=== PATIENT | female | born 1955 | race Caucasian/White ===

== ENCOUNTER → 2017-04-12 | Outpatient (CLI) | payer BC ==
[~2017-04-12] MED LIST: ASPI81CH43 GT; ATEN50TA OR; LISI10TA6 OR; TRAM-297 OR; TRIATAB3 OR
[2017-04-12 07:36] LABS: Basophils # (auto) 0.1 uL; Eosinophils # (auto) 0.1 uL; Monocytes # (auto) 0.5 uL; Neutrophils # (auto) 5.9 uL
[2017-04-12 07:38] LABS: Basophils % (auto) 0.7 % (0.0-2.0); Eosinophils % (auto) 1.6 % (0.0-7.0); Hematocrit 42.3 % (36.0-46.0); Hemoglobin 14.6 g/dL (12.2-16.2); Lymphocytes # (auto) 1.1 uL; Lymphocytes % (auto) 14.1 % (10.0-50.0); Mean Corpuscular Hemoglobin 34.8 pg (28.0-32.0); Mean Corpuscular Hgb Conc. 34.5 g/dL (32.0-36.0); Mean Corpuscular Volume 100.7 fL (80.0-100.0); Neutrophils % (auto) 76.6 % (37.0-80.0); Nucleated Red Blood Cells % 0.1 %; Platelet Count (auto) 188 10^3/uL (140-450); Red Cell Distribution Width 12.5 % (11.8-14.3); White Blood Cell 7.7 10^3/uL (4.4-10.8)
[2017-04-12 08:27] LABS: BUN/Creatinine Ratio 10.7; Bilirubin, Total 0.6 mg/dL (0.2-1.0); Potassium 4.3 mmol/L (3.5-5.1)
[2017-04-12 08:29] LABS: Urine Bacteria NONE SEEN /hpf (None Seen); Urine Blood Negative /uL (Negative); Urine Specific Gravity 1.005 (1.001-1.035); Urine WBC <1 /hpf (0 - 5)
[2017-04-12 09:43] LABS: Folate (Folic Acid) > 24.00 ng/mL (5.38-24)
== END | disposition home or self-care (01) ==
LOC: LAB 07:03
PROVIDERS: ATTEND Family Medicine
DX: I10 Essential (primary) hypertension (principal)
CPT/HCPCS: 36415; 80053; 80061; 81001; 82607; 82746; 83036; 85025

== ENCOUNTER 2017-11-29 08:15 | Inpatient (IN) | payer BC ==
[~2017-11-29] VITALS: Ht 172.7 cm; Wt 90.2 kg
[2017-11-29 09:40] VITALS: BP 139/86
[2017-11-29] MEDS ORDERED: NITROGLYCERIN 0.4 MG SL TAB SL PRN (11:30)
[2017-11-29] MEDS ORDERED: SODIUM CHLORIDE 0.9% 1,000 ML IV SCH (11:30)
[2017-11-29] MEDS ORDERED: MORPHINE SULF INJ 2 MG/ML SYRINGE 1ML IV PRN (11:30)
[2017-11-29] MEDS: SODIUM CHLORIDE 0.9% 1,000 ML IV SCH (11:53)
[2017-11-29 12:22] LABS: Eosinophils # (auto) 0.2 uL; Mean Corpuscular Hgb Conc. 34.8 g/dL (32.0-36.0); Neutrophils # (auto) 4.4 uL; Nucleated Red Blood Cells % 0.1 %; White Blood Cell 6.5 10^3/uL (4.4-10.8)
[2017-11-29 12:23] LABS: Basophils # (auto) 0.1 uL; Basophils % (auto) 1.7 % (0.0-2.0); Eosinophils % (auto) 2.9 % (0.0-7.0); Hemoglobin 13.9 g/dL (12.2-16.2); Lymphocytes # (auto) 1.3 uL; Lymphocytes % (auto) 19.8 % (10.0-50.0); Mean Corpuscular Hemoglobin 34.2 pg (28.0-32.0); Mean Corpuscular Volume 98.4 fL (80.0-100.0); Monocytes # (auto) 0.4 uL; Monocytes % (auto) 6.9 % (0.0-12.0); Neutrophils % (auto) 68.7 % (37.0-80.0); Platelet Count (auto) 213 10^3/uL (140-450); Red Blood Cells 4.06 10^6/uL (4.0-5.20)
[2017-11-29] MEDS ORDERED: SIMV10TA84 PO (12:25)
[2017-11-29] MEDS ORDERED: ATEN50TA PO (12:25)
[2017-11-29] MEDS ORDERED: MULT-242 OR (12:25)
[2017-11-29] MEDS ORDERED: CALC-386 OR (12:25)
[2017-11-29] MEDS ORDERED: ASCO500T11 PO (12:25)
[2017-11-29] MEDS ORDERED: OMEG100078 PO (12:25)
[2017-11-29] MEDS ORDERED: ATEN-60 PO (12:25)
[2017-11-29] MEDS ORDERED: HYDR25TA4 PO (12:25)
[2017-11-29] MEDS ORDERED: CHOL20007 PO (12:25)
[2017-11-29] MEDS ORDERED: LOSA25TA40 PO (12:25)
[2017-11-29 12:39] LABS: INR 1.01 (0.9-1.15); Partial Thromboplastin Time 30.2 sec (23.78-33.04); Prothrombin Time 10.8 sec (9.27-12.13)
[2017-11-29 12:55] LABS: Bilirubin, Total 0.7 mg/dL (0.2-1.0); Calcium 9.7 mg/dL (8.5-10.1); Potassium 3.8 mmol/L (3.5-5.1); Total Protein 7.8 g/dL (6.4-8.2)
[2017-11-29 13:00] VITALS: BP 132/62
[2017-11-29 13:15] LABS: Urine Bacteria FEW /hpf (None Seen); Urine Blood Negative /uL (Negative); Urine Mucus FEW (None Seen); Urine Specific Gravity 1.003 (1.001-1.035); Urine WBC 2 /hpf (0 - 5)
[2017-11-29] MEDS ORDERED: IOHEXOL 300 MG/ML 100ML BOTTLE IJ ONE (13:37)
[2017-11-29] MEDS ORDERED: GOLYTELY 4L KIT PO ONE (15:00)
[2017-11-29 16:17] VITALS: BP 138/72
[2017-11-29 22:00] VITALS: BP 131/72
[2017-11-29] MEDS ORDERED: ACETAMINOPHEN 500 MG TAB PO ONE (22:58)
[2017-11-30] MEDS: SODIUM CHLORIDE 0.9% 1,000 ML IV SCH ×3 (01:55→15:52)
[2017-11-30 05:00] VITALS: BP 137/73
[2017-11-30] MEDS ORDERED: GOLYTELY 4L KIT PO ONE (06:00)
[2017-11-30 06:15] LABS: Eosinophils # (auto) 0.2 uL; Hematocrit 39.8 % (36.0-46.0); Lymphocytes # (auto) 1.4 uL; Monocytes # (auto) 0.5 uL; Neutrophils # (auto) 3.9 uL
[2017-11-30 06:20] LABS: Basophils # (auto) 0.1 uL; Basophils % (auto) 0.9 % (0.0-2.0); Eosinophils % (auto) 3.1 % (0.0-7.0); Mean Corpuscular Hgb Conc. 35.2 g/dL (32.0-36.0); Mean Corpuscular Volume 98.4 fL (80.0-100.0); Monocytes % (auto) 7.6 % (0.0-12.0); Neutrophils % (auto) 64.4 % (37.0-80.0); Red Blood Cells 4.05 10^6/uL (4.0-5.20); Red Cell Distribution Width 12.1 % (11.8-14.3)
[2017-11-30 06:23] LABS: Mean Corpuscular Hemoglobin 34.5 pg (28.0-32.0); Platelet Count (auto) 209 10^3/uL (140-450)
[2017-11-30 06:32] LABS: BUN/Creatinine Ratio 10.7; Potassium 3.7 mmol/L (3.5-5.1)
[2017-11-30 08:43] VITALS: BP 148/72
[2017-11-30] MEDS ORDERED: SODIUM CHLORIDE LOCK 10 ML ONE (08:55)
[2017-11-30] MEDS ORDERED: diphenhdrAMINE HCL 50 MG/1 ML VL ONE (08:56)
[2017-11-30] MEDS: LOSARTAN POTASSIUM 25 MG TAB PO SCH (09:54)
[2017-11-30] MEDS ORDERED: ATENOLOL 25 MG TAB PO ONE (11:30)
[2017-11-30] MEDS: fentaNYL CITRATE 100 MCG/2 ML VL ONE ×3 (12:02→12:11)
[2017-11-30] MEDS: MIDAZOLAM HCL 5 MG/ML-1ML VIAL ONE ×3 (12:02→12:11)
[2017-11-30 13:20] VITALS: BP 146/69
[2017-11-30 16:57] VITALS: BP 129/79
[2017-11-30] MEDS: ACETAMINOPHEN 500 MG TAB PO PRN (21:26)
[2017-11-30] MEDS: ATENOLOL 25 MG TAB PO SCH (21:26)
[2017-11-30 21:38] VITALS: BP 136/73
[2017-12-01] MEDS: SODIUM CHLORIDE 0.9% 1,000 ML IV SCH (01:49)
[2017-12-01 04:55] VITALS: BP 152/77
[2017-12-01 06:05] LABS: Basophils # (auto) 0 uL; Basophils % (auto) 0.6 % (0.0-2.0); Eosinophils # (auto) 0.2 uL; Monocytes # (auto) 0.6 uL; White Blood Cell 6.4 10^3/uL (4.4-10.8)
[2017-12-01 06:08] LABS: Eosinophils % (auto) 2.7 % (0.0-7.0); Hematocrit 38.3 % (36.0-46.0); Hemoglobin 13.3 g/dL (12.2-16.2); Lymphocytes # (auto) 1.4 uL; Lymphocytes % (auto) 22.4 % (10.0-50.0); Mean Corpuscular Hemoglobin 34.6 pg (28.0-32.0); Mean Corpuscular Hgb Conc. 34.7 g/dL (32.0-36.0); Mean Corpuscular Volume 99.7 fL (80.0-100.0); Monocytes % (auto) 8.7 % (0.0-12.0); Neutrophils # (auto) 4.2 uL; Neutrophils % (auto) 65.6 % (37.0-80.0); Platelet Count (auto) 208 10^3/uL (140-450); Red Blood Cells 3.84 10^6/uL (4.0-5.20); Red Cell Distribution Width 12.2 % (11.8-14.3)
[2017-12-01] MEDS ORDERED: LORazepam 2MG/ML-1ML VIAL IV ONE (07:30)
[2017-12-01 08:00] VITALS: BP 159/72
[2017-12-01 08:36] VITALS: BP 159/72
[2017-12-01] MEDS: ATENOLOL 25 MG TAB PO SCH (10:00)
[2017-12-01] MEDS: LOSARTAN POTASSIUM 25 MG TAB PO SCH (10:28)
[2017-12-01] MEDS ORDERED: LOSARTAN POTASSIUM 25 MG TAB PO ONE (11:45)
[2017-12-01] MEDS ORDERED: GADOPENTETATE DIMEGLUMINE (10MMOL/20 ML) VIAL IV ONE (12:18)
[2017-12-01 13:49] VITALS: BP 138/69
[2017-12-01] MEDS: ACETAMINOPHEN 500 MG TAB PO PRN (18:45)
[2017-12-01 21:29] VITALS: BP 150/75
[2017-12-02 04:54] VITALS: BP 183/95
[2017-12-02 09:00] VITALS: BP 154/81
[2017-12-02] MEDS ORDERED: LOSARTAN POTASSIUM 25 MG TAB PO SCH (10:00)
[2017-12-02 11:19] VITALS: BP 154/81
== END 2017-12-02 12:29 | disposition home or self-care (01) | DRG 375 ==
LOC: EEVIPCON → TELE-EAST 09:49
PROVIDERS: ADMIT Internal Medicine; ATTEND Internal Medicine
PROC: 0DBP8ZX Excision of Rectum, Via Natural or Artificial Opening Endoscopic, Diagnostic (ICD-10-PCS; principal; 2017-11-30 11:58)
DX: C20 Malignant neoplasm of rectum (principal); K62.6 Ulcer of anus and rectum; D25.9 Leiomyoma of uterus, unspecified; Z96.641 Presence of right artificial hip joint; E66.9 Obesity, unspecified; N85.9 Noninflammatory disorder of uterus, unspecified; E78.5 Hyperlipidemia, unspecified; I11.9 Hypertensive heart disease without heart failure; K57.30 Diverticulosis of large intestine without perforation or abscess without bleeding; Z80.3 Family history of malignant neoplasm of breast; Z98.51 Tubal ligation status; Z90.89 Acquired absence of other organs; Z79.899 Other long term (current) drug therapy; Z68.30 Body mass index [BMI] 30.0-30.9, adult
CPT/HCPCS: 36415; 45380; 71045; 72195; 74177; 76856; 80048; 80053; 81001; 82378; 85025; 85610; 85730; 86304; J2250

== ENCOUNTER → 2017-12-07 | Outpatient (CLI) | payer BC ==
[~2017-12-07] MED LIST changes: +ASCO500T11 PO; +ATEN-60 PO; -ATEN50TA OR; +ATEN50TA PO; +CALC-386 OR; +CHOL20007 PO; +HYDR25TA4 PO; +LIDOCAINE 1% (LOCAL ANESTH.) PF 5ml SDV ID ONE; -LISI10TA6 OR; +LOSA25TA40 PO; +MULT-242 OR; +OMEG100078 PO; +SIMV10TA84 PO; +SODIUM CHLOR 0.9% PF (SALINE LOCK) 10ML VIAL/SYR IV SCH; -TRAM-297 OR; -TRIATAB3 OR
== END | disposition home or self-care (01) ==
LOC: XYW 10:54
PROVIDERS: ATTEND Internal Medicine
DX: C21.8 Malignant neoplasm of overlapping sites of rectum, anus and anal canal (principal)
CPT/HCPCS: 71045

== ENCOUNTER → 2017-12-19 | Outpatient (CLI) | payer BC ==
[~2017-12-19] MED LIST changes: -LIDOCAINE 1% (LOCAL ANESTH.) PF 5ml SDV ID ONE; -SODIUM CHLOR 0.9% PF (SALINE LOCK) 10ML VIAL/SYR IV SCH
[2017-12-19 14:31] LABS: Basophils # (auto) 0 uL; Basophils % (auto) 0.9 % (0.0-2.0); Eosinophils # (auto) 0.1 uL; Eosinophils % (auto) 1.7 % (0.0-7.0); Hematocrit 38.6 % (36.0-46.0); Hemoglobin 13.4 g/dL (12.2-16.2); Lymphocytes # (auto) 0.6 uL; Lymphocytes % (auto) 13.7 % (10.0-50.0); Mean Corpuscular Hemoglobin 33.8 pg (28.0-32.0); Mean Corpuscular Hgb Conc. 34.6 g/dL (32.0-36.0); Mean Corpuscular Volume 97.7 fL (80.0-100.0); Monocytes # (auto) 0 uL; Monocytes % (auto) 0.5 % (0.0-12.0); Neutrophils # (auto) 3.9 uL; Neutrophils % (auto) 83.2 % (37.0-80.0); Nucleated Red Blood Cells % 0.2 %; Platelet Count (auto) 154 10^3/uL (140-450); Red Blood Cells 3.95 10^6/uL (4.0-5.20); Red Cell Distribution Width 11.7 % (11.8-14.3); White Blood Cell 4.7 10^3/uL (4.4-10.8)
[2017-12-19 18:29] LABS: Potassium 3.6 mmol/L (3.5-5.1)
[2017-12-19 18:37] LABS: Albumin 3.7 g/dL (3.4-5.0); BUN/Creatinine Ratio 14.6; Calcium 8.7 mg/dL (8.5-10.1)
[2017-12-19 18:40] LABS: Bilirubin, Total 0.8 mg/dL (0.2-1.0); Total Protein 7.3 g/dL (6.4-8.2)
== END | disposition home or self-care (01) ==
LOC: LAB 14:23
PROVIDERS: ATTEND Internal Medicine
DX: Z51.11 Encounter for antineoplastic chemotherapy (principal); C21.8 Malignant neoplasm of overlapping sites of rectum, anus and anal canal; I10 Essential (primary) hypertension
CPT/HCPCS: 36415; 80053; 83615; 85025

== ENCOUNTER → 2017-12-26 | Outpatient (CLI) | payer BC ==
[~2017-12-26] MED LIST changes: +MAGIC MT
[2017-12-26 10:44] LABS: Basophils # (auto) 0 uL; Eosinophils # (auto) 0 uL; Hemoglobin 11.2 g/dL (12.2-16.2); Lymphocytes # (auto) 0.2 uL; Monocytes # (auto) 0.1 uL; Neutrophils # (auto) 0 uL
[2017-12-26 10:46] LABS: Basophils % (auto) 0.6 % (0.0-2.0); Eosinophils % (auto) 12.4 % (0.0-7.0); Hematocrit 30.8 % (36.0-46.0); Lymphocytes % (auto) 48.8 % (10.0-50.0); Mean Corpuscular Hgb Conc. 36.3 g/dL (32.0-36.0); Mean Corpuscular Volume 93.7 fL (80.0-100.0); Neutrophils % (auto) 10.5 % (37.0-80.0); Nucleated Red Blood Cells % 0.9 %; Platelet Count (auto) 32 10^3/uL (140-450); Red Blood Cells 3.29 10^6/uL (4.0-5.20); Red Cell Distribution Width 11.3 % (11.8-14.3)
[2017-12-26 10:58] LABS: Albumin 3.3 g/dL (3.4-5.0); Calcium 8.5 mg/dL (8.5-10.1); Potassium 3.3 mmol/L (3.5-5.1)
[2017-12-26 11:01] LABS: BUN/Creatinine Ratio 12.3; Total Protein 6.8 g/dL (6.4-8.2)
[2017-12-26 11:17] LABS: Monocytes % (auto) 27.7 % (0.0-12.0)
[2017-12-26 11:21] LABS: White Blood Cell 0.3 10^3/uL (4.4-10.8)
== END | disposition home or self-care (01) ==
LOC: LAB 10:30
PROVIDERS: ATTEND Internal Medicine
DX: Z51.11 Encounter for antineoplastic chemotherapy (principal); C21.8 Malignant neoplasm of overlapping sites of rectum, anus and anal canal
CPT/HCPCS: 36415; 80053; 83615; 85025

== ENCOUNTER 2017-12-27 10:51 | Inpatient (IN) | payer BC ==
[~2017-12-27] VITALS: Ht 172.7 cm; Wt 88.2 kg
[~2017-12-27 10:51] MED LIST changes: -MAGIC MT
[2017-12-27 10:56] LABS: Hemoglobin 10.6 g/dL (12.2-16.2)
[2017-12-27 10:58] LABS: Hematocrit 29.6 % (36.0-46.0); Mean Corpuscular Hemoglobin 33.8 pg (28.0-32.0); Mean Corpuscular Hgb Conc. 35.8 g/dL (32.0-36.0); Mean Corpuscular Volume 94.5 fL (80.0-100.0); Platelet Count (auto) 35 10^3/uL (140-450); Red Cell Distribution Width 11.3 % (11.8-14.3)
[2017-12-27 11:18] LABS: BUN/Creatinine Ratio 11.3; Calcium 8.2 mg/dL (8.5-10.1); Magnesium 2.2 mg/dL (1.6-2.6); White Blood Cell 0.5 10^3/uL (4.4-10.8)
[2017-12-27 11:20] LABS: Red Blood Cells 3.14 10^6/uL (4.0-5.20)
[2017-12-27 11:21] LABS: Basophils % (manual) 0 (0.0-2.0); Blast Cells 0; Metamyelocytes % 0; Myelocytes % 0; Promyelocytes % 0; Reactive Lymphocytes 0
[2017-12-27 12:15] LABS: Band Neutrophils % (manual) 4; Eosinophils % (manual) 2 (0-7); Lymphocytes % (manual) 48 (10.0-50.0); Monocytes % (manual) 26 (0-12)
[2017-12-27 12:45] VITALS: BP 134/57
[2017-12-27] MEDS ORDERED: PIPERACILLIN-TAZOB 3.375GM 100 ML IV ONE (13:00)
[2017-12-27] MEDS ORDERED: PANTOPRAZOLE 40 MG/10 ML VIAL IV ONE (13:00)
[2017-12-27] MEDS: LOPERAMIDE HCL 2 MG CAP PO PRN ×3 (13:27→20:02)
[2017-12-27] MEDS: HYDROcodone-ACET 5/325MG TAB PO PRN ×2 (13:28→22:13)
[2017-12-27] MEDS: SOD CHL 0.9%/ KCL 40MEQ 1,000 ML IV SCH (13:28)
[2017-12-27] MEDS: ONDANSETRON HCL 4 MG/2 ML VIAL IV PRN ×2 (15:19→20:02)
[2017-12-27] MEDS: MORPHINE SULFATE 4 MG/ML SYR/VIAL IV PRN ×2 (15:19→20:01)
[2017-12-27 16:56] VITALS: BP 101/42
[2017-12-27] MEDS ORDERED: MAGIC MT (17:11)
[2017-12-27 17:22] LABS: Urine Bacteria FEW /hpf (None Seen); Urine Blood 1+ /uL (Negative); Urine Mucus FEW (None Seen); Urine Specific Gravity 1.022 (1.001-1.035); Urine WBC 11 /hpf (0 - 5)
[2017-12-27] MEDS: ACETAMINOPHEN 650 mg PER 20 mL UD PO PRN (17:49)
[2017-12-27 22:00] VITALS: BP 89/52
[2017-12-27] MEDS: PIPERACILLIN-TAZOB 3.375GM 100 ML IV SCH (22:13)
[2017-12-28] MEDS: SOD CHL 0.9%/ KCL 40MEQ 1,000 ML IV SCH ×3 (00:35→19:00)
[2017-12-28] MEDS: MORPHINE SULFATE 4 MG/ML SYR/VIAL IV PRN ×4 (00:36→22:36)
[2017-12-28] MEDS: ONDANSETRON HCL 4 MG/2 ML VIAL IV PRN ×3 (00:36→22:35)
[2017-12-28] MEDS: ACETAMINOPHEN 650 mg PER 20 mL UD PO PRN ×2 (00:43→17:00)
[2017-12-28] MEDS ORDERED: diphenhdrAMINE HCL 25 MG CAP PO ONE (03:30)
[2017-12-28] MEDS: HYDROcodone-ACET 5/325MG TAB PO PRN ×2 (04:21→20:19)
[2017-12-28 05:00] VITALS: BP 111/47
[2017-12-28] MEDS: PIPERACILLIN-TAZOB 3.375GM 100 ML IV SCH ×3 (05:33→22:36)
[2017-12-28] MEDS: LOPERAMIDE HCL 2 MG CAP PO PRN ×4 (05:34→20:19)
[2017-12-28 05:47] LABS: Hematocrit 26.1 % (36.0-46.0); Hemoglobin 9.6 g/dL (12.2-16.2); Mean Corpuscular Hemoglobin 35.1 pg (28.0-32.0); Mean Corpuscular Hgb Conc. 36.8 g/dL (32.0-36.0); Mean Corpuscular Volume 95.3 fL (80.0-100.0); Red Blood Cells 2.74 10^6/uL (4.0-5.20); Red Cell Distribution Width 11.4 % (11.8-14.3)
[2017-12-28 05:52] LABS: INR 1.35 (0.9-1.15); Partial Thromboplastin Time 30.4 sec (23.78-33.04); Prothrombin Time 14.2 sec (9.27-12.13)
[2017-12-28 05:57] LABS: Albumin 2.6 g/dL (3.4-5.0); BUN/Creatinine Ratio 10.5; Calcium 7.5 mg/dL (8.5-10.1); Potassium 3.5 mmol/L (3.5-5.1)
[2017-12-28 06:00] LABS: Bilirubin, Total 0.8 mg/dL (0.2-1.0); Total Protein 5.9 g/dL (6.4-8.2)
[2017-12-28 06:12] LABS: Platelet Count (auto) 36 10^3/uL (140-450)
[2017-12-28 06:14] LABS: Basophils % (manual) 0 (0.0-2.0); Blast Cells 0; Myelocytes % 0; Promyelocytes % 0; Reactive Lymphocytes 0
[2017-12-28 08:32] VITALS: BP 104/58
[2017-12-28 08:36] LABS: Eosinophils % (manual) 2 (0-7); Lymphocytes % (manual) 30 (10.0-50.0); Monocytes % (manual) 20 (0-12)
[2017-12-28 08:37] LABS: Band Neutrophils % (manual) 12; Metamyelocytes % 2
[2017-12-28] MEDS ORDERED: FILGRASTIM(TBO) 480 MCG/0.8 ML SYRG SC ONE (10:15)
[2017-12-28] MEDS ORDERED: diphenhdrAMINE HCL 50 MG/1 ML VL IV PRN (10:15)
[2017-12-28 12:05] VITALS: BP 106/43
[2017-12-28] MEDS: ENSURE CLEAR Mixed Berry 8oz Carton PO SCH ×2 (12:15→18:00)
[2017-12-28] MEDS: diphenhdrAMINE HCL 25 MG CAP PO PRN ×2 (12:15→19:00)
[2017-12-28] MEDS: PANTOPRAZOLE 40 MG/10 ML VIAL IV SCH (12:15)
[2017-12-28] MEDS: MAGIC MOUTHWASH 55 ML SUSP MT SCH ×3 (12:15→22:36)
[2017-12-28 16:49] VITALS: BP 117/59
[2017-12-28] MEDS: LIDOCAINE HCL 5 % TOP OINT 35 GM TOP PRN ×2 (19:00→20:08)
[2017-12-28 22:00] VITALS: BP 104/44
[2017-12-29] VITALS (7 sets, daily range): BP systolic 109–138; BP diastolic 48–64
[2017-12-29] MEDS: diphenhdrAMINE HCL 25 MG CAP PO PRN ×2 (04:24→20:35)
[2017-12-29] MEDS: HYDROcodone-ACET 5/325MG TAB PO PRN ×3 (04:25→18:00)
[2017-12-29] MEDS: LOPERAMIDE HCL 2 MG CAP PO PRN ×4 (04:26→20:35)
[2017-12-29] MEDS: LIDOCAINE HCL 5 % TOP OINT 35 GM TOP PRN ×2 (05:36→16:54)
[2017-12-29] MEDS: SOD CHL 0.9%/ KCL 40MEQ 1,000 ML IV SCH ×3 (05:36→21:20)
[2017-12-29] MEDS: MAGIC MOUTHWASH 55 ML SUSP MT SCH ×4 (05:37→21:20)
[2017-12-29] MEDS: PIPERACILLIN-TAZOB 3.375GM 100 ML IV SCH (05:37)
[2017-12-29 05:53] LABS: Hemoglobin 9.5 g/dL (12.2-16.2); Platelet Count (auto) 47 10^3/uL (140-450); White Blood Cell 2.4 10^3/uL (4.4-10.8)
[2017-12-29 05:56] LABS: Hematocrit 26.7 % (36.0-46.0); Mean Corpuscular Hemoglobin 34.9 pg (28.0-32.0); Mean Corpuscular Hgb Conc. 35.6 g/dL (32.0-36.0); Mean Corpuscular Volume 97.9 fL (80.0-100.0); Red Blood Cells 2.72 10^6/uL (4.0-5.20); Red Cell Distribution Width 11.6 % (11.8-14.3)
[2017-12-29 05:57] LABS: Basophils % (manual) 0 (0.0-2.0); Blast Cells 0; Myelocytes % 0; Promyelocytes % 0; Reactive Lymphocytes 0
[2017-12-29 06:20] LABS: BUN/Creatinine Ratio 6.1; Calcium 8.1 mg/dL (8.5-10.1); Potassium 3.5 mmol/L (3.5-5.1)
[2017-12-29 06:50] LABS: Band Neutrophils % (manual) 12; Eosinophils % (manual) 1 (0-7); Lymphocytes % (manual) 12 (10.0-50.0); Metamyelocytes % 2; Monocytes % (manual) 10 (0-12)
[2017-12-29] MEDS: ENSURE CLEAR Mixed Berry 8oz Carton PO SCH ×3 (08:00→18:00)
[2017-12-29] MEDS: PANTOPRAZOLE 40 MG/10 ML VIAL IV SCH (09:42)
[2017-12-29] MEDS ORDERED: FILGRASTIM(TBO) 480 MCG/0.8 ML SYRG SC SCH (10:00)
[2017-12-29] MEDS: cefTRIAXone 1GM/50ML D5W 50 ML IV SCH (11:12)
[2017-12-29] MEDS: MORPHINE SULFATE 4 MG/ML SYR/VIAL IV PRN (13:31)
[2017-12-29] MEDS: ONDANSETRON HCL 4 MG/2 ML VIAL IV PRN (13:32)
[2017-12-30] MEDS ORDERED: diphenhdrAMINE HCL 50 MG/1 ML VL IV ONE (00:30)
[2017-12-30] MEDS: ONDANSETRON HCL 4 MG/2 ML VIAL IV PRN (00:53)
[2017-12-30] MEDS: MORPHINE SULFATE 4 MG/ML SYR/VIAL IV PRN (00:53)
[2017-12-30] MEDS: LOPERAMIDE HCL 2 MG CAP PO PRN ×3 (00:54→11:23)
[2017-12-30] MEDS: ACETAMINOPHEN 650 mg PER 20 mL UD PO PRN (02:00)
[2017-12-30 05:00] VITALS: BP 138/58
[2017-12-30] MEDS: diphenhdrAMINE HCL 25 MG CAP PO PRN (05:13)
[2017-12-30] MEDS: MAGIC MOUTHWASH 55 ML SUSP MT SCH ×2 (05:13→11:24)
[2017-12-30] MEDS: HYDROcodone-ACET 5/325MG TAB PO PRN ×2 (05:14→11:23)
[2017-12-30 05:53] LABS: Red Cell Distribution Width 11.5 % (11.8-14.3)
[2017-12-30 05:56] LABS: Hematocrit 23.6 % (36.0-46.0); Hemoglobin 8.1 g/dL (12.2-16.2); Mean Corpuscular Hemoglobin 34.9 pg (28.0-32.0); Mean Corpuscular Hgb Conc. 34.5 g/dL (32.0-36.0); Mean Corpuscular Volume 101.1 fL (80.0-100.0); Red Blood Cells 2.34 10^6/uL (4.0-5.20); White Blood Cell 3.2 10^3/uL (4.4-10.8)
[2017-12-30 06:08] LABS: Platelet Count (auto) 50 10^3/uL (140-450)
[2017-12-30 06:09] LABS: Basophils % (manual) 0 (0.0-2.0); Blast Cells 0; Eosinophils % (manual) 0 (0-7); Metamyelocytes % 0; Myelocytes % 0; Promyelocytes % 0; Reactive Lymphocytes 0
[2017-12-30 06:22] LABS: Potassium 3.9 mmol/L (3.5-5.1)
[2017-12-30 06:29] LABS: BUN/Creatinine Ratio 5.9; Calcium 7.4 mg/dL (8.5-10.1)
[2017-12-30 07:43] LABS: Band Neutrophils % (manual) 13; Lymphocytes % (manual) 24 (10.0-50.0); Monocytes % (manual) 6 (0-12)
[2017-12-30] MEDS: ENSURE CLEAR Mixed Berry 8oz Carton PO SCH ×2 (08:00→12:00)
[2017-12-30 09:00] VITALS: BP 145/64
[2017-12-30] MEDS: cefTRIAXone 1GM/50ML D5W 50 ML IV SCH (10:00)
[2017-12-30 12:19] VITALS: BP 145/64
[2017-12-30 13:00] VITALS: BP 115/53
[2017-12-30] MEDS: SOD CHL 0.9%/ KCL 40MEQ 1,000 ML IV SCH (13:10)
== END 2017-12-30 13:50 | disposition home or self-care (01) | DRG 872 ==
LOC: LAB 10:51 → EDSTATUS 11:59 → EEVIPCON 12:00 → CENTRAL 12:00
PROVIDERS: ADMIT Internal Medicine; ATTEND Internal Medicine
DX: A41.9 Sepsis, unspecified organism (principal); C20 Malignant neoplasm of rectum; E87.1 Hypo-osmolality and hyponatremia; N39.0 Urinary tract infection, site not specified; B96.20 Unspecified Escherichia coli [E. coli] as the cause of diseases classified elsewhere; D69.6 Thrombocytopenia, unspecified; K12.1 Other forms of stomatitis; D70.9 Neutropenia, unspecified; E78.5 Hyperlipidemia, unspecified; E86.0 Dehydration; E87.6 Hypokalemia; I10 Essential (primary) hypertension; Z79.899 Other long term (current) drug therapy; Z85.048 Personal history of other malignant neoplasm of rectum, rectosigmoid junction, and anus; Z92.21 Personal history of antineoplastic chemotherapy; Z92.3 Personal history of irradiation
CPT/HCPCS: 36415; 71045; 80048; 80053; 81001; 83735; 85007; 85027; 85610; 85730; 87040; 87077; 87081; 87086; 87088; 87186; 87493; C9113; J0696; J1447; J2405; J2543

== ENCOUNTER → 2018-01-02 | Outpatient (CLI) | payer BC ==
[~2018-01-02] MED LIST changes: +MAGIC MT
[2018-01-02 12:19] LABS: Red Blood Cells 2.91 10^6/uL (4.0-5.20); White Blood Cell 2.9 10^3/uL (4.4-10.8)
[2018-01-02 12:22] LABS: Hematocrit 28.7 % (36.0-46.0); Hemoglobin 10.2 g/dL (12.2-16.2); Mean Corpuscular Hemoglobin 35.1 pg (28.0-32.0); Mean Corpuscular Hgb Conc. 35.5 g/dL (32.0-36.0); Mean Corpuscular Volume 98.9 fL (80.0-100.0); Platelet Count (auto) 142 10^3/uL (140-450); Red Cell Distribution Width 12.1 % (11.8-14.3)
[2018-01-02 12:37] LABS: Basophils % (manual) 0 (0.0-2.0); Blast Cells 0; Promyelocytes % 0; Reactive Lymphocytes 0
[2018-01-02 12:39] LABS: Albumin 2.9 g/dL (3.4-5.0); Calcium 8.6 mg/dL (8.5-10.1); Potassium 3.7 mmol/L (3.5-5.1)
[2018-01-02 12:44] LABS: BUN/Creatinine Ratio 6.2; Bilirubin, Total 0.5 mg/dL (0.2-1.0); Total Protein 6.4 g/dL (6.4-8.2)
[2018-01-02 13:40] LABS: Band Neutrophils % (manual) 1; Eosinophils % (manual) 1 (0-7); Lymphocytes % (manual) 33 (10.0-50.0); Metamyelocytes % 1; Monocytes % (manual) 16 (0-12); Myelocytes % 1
== END | disposition home or self-care (01) ==
LOC: LAB 12:02
PROVIDERS: ATTEND Internal Medicine
DX: C21.8 Malignant neoplasm of overlapping sites of rectum, anus and anal canal (principal)
CPT/HCPCS: 36415; 80053; 85007; 85027

== ENCOUNTER → 2018-01-11 | Outpatient (CLI) | payer BC ==
[2018-01-11 10:34] LABS: Eosinophils # (auto) 0 uL; Lymphocytes # (auto) 0.5 uL; Mean Corpuscular Hgb Conc. 33.1 g/dL (32.0-36.0); Monocytes # (auto) 0.4 uL; White Blood Cell 2.9 10^3/uL (4.4-10.8)
[2018-01-11 10:37] LABS: Basophils # (auto) 0 uL; Basophils % (auto) 1.3 % (0.0-2.0); Eosinophils % (auto) 1.3 % (0.0-7.0); Hematocrit 33.9 % (36.0-46.0); Hemoglobin 11.2 g/dL (12.2-16.2); Lymphocytes % (auto) 16.8 % (10.0-50.0); Mean Corpuscular Hemoglobin 33.6 pg (28.0-32.0); Mean Corpuscular Volume 101.4 fL (80.0-100.0); Monocytes % (auto) 12.9 % (0.0-12.0); Neutrophils % (auto) 67.7 % (37.0-80.0); Platelet Count (auto) 385 10^3/uL (140-450); Red Blood Cells 3.34 10^6/uL (4.0-5.20); Red Cell Distribution Width 13.7 % (11.8-14.3)
[2018-01-11 10:54] LABS: Albumin 3.4 g/dL (3.4-5.0); Calcium 9.1 mg/dL (8.5-10.1); Potassium 4.2 mmol/L (3.5-5.1)
[2018-01-11 11:00] LABS: BUN/Creatinine Ratio 8.5; Bilirubin, Total 0.6 mg/dL (0.2-1.0)
== END | disposition home or self-care (01) ==
LOC: LAB 10:28
PROVIDERS: ATTEND Internal Medicine
DX: C21.8 Malignant neoplasm of overlapping sites of rectum, anus and anal canal (principal)
CPT/HCPCS: 36415; 80053; 83615; 85025

== ENCOUNTER → 2018-01-16 | Outpatient (CLI) | payer BC ==
[2018-01-16 11:37] LABS: Basophils # (auto) 0 uL; Eosinophils # (auto) 0.1 uL; Hemoglobin 11.8 g/dL (12.2-16.2); Lymphocytes # (auto) 0.5 uL; Monocytes # (auto) 0.6 uL; White Blood Cell 4.5 10^3/uL (4.4-10.8)
[2018-01-16 11:39] LABS: Basophils % (auto) 0.6 % (0.0-2.0); Eosinophils % (auto) 2.8 % (0.0-7.0); Hematocrit 35.1 % (36.0-46.0); Lymphocytes % (auto) 10.7 % (10.0-50.0); Mean Corpuscular Hemoglobin 34.5 pg (28.0-32.0); Mean Corpuscular Hgb Conc. 33.5 g/dL (32.0-36.0); Mean Corpuscular Volume 102.7 fL (80.0-100.0); Neutrophils # (auto) 3.3 uL; Neutrophils % (auto) 72.9 % (37.0-80.0); Platelet Count (auto) 234 10^3/uL (140-450); Red Blood Cells 3.42 10^6/uL (4.0-5.20)
== END | disposition home or self-care (01) ==
LOC: LAB 11:11
PROVIDERS: ATTEND Internal Medicine
DX: C21.8 Malignant neoplasm of overlapping sites of rectum, anus and anal canal (principal)
CPT/HCPCS: 36415; 85025

== ENCOUNTER → 2018-01-25 | Outpatient (CLI) | payer BC ==
[2018-01-25 11:00] LABS: Basophils # (auto) 0 uL; Basophils % (auto) 0.3 % (0.0-2.0); Eosinophils # (auto) 0.2 uL; Eosinophils % (auto) 4.6 % (0.0-7.0); Hematocrit 33.3 % (36.0-46.0); Hemoglobin 11.4 g/dL (12.2-16.2); Lymphocytes # (auto) 0.3 uL; Lymphocytes % (auto) 5.4 % (10.0-50.0); Mean Corpuscular Hemoglobin 34.6 pg (28.0-32.0); Mean Corpuscular Hgb Conc. 34.2 g/dL (32.0-36.0); Monocytes # (auto) 0.3 uL; Monocytes % (auto) 5.4 % (0.0-12.0); Neutrophils # (auto) 4.1 uL; Neutrophils % (auto) 84.3 % (37.0-80.0); Nucleated Red Blood Cells % 0.2 %; Platelet Count (auto) 88 10^3/uL (140-450); Red Cell Distribution Width 15.8 % (11.8-14.3); White Blood Cell 4.9 10^3/uL (4.4-10.8)
[2018-01-25 18:27] LABS: Potassium 3.9 mmol/L (3.5-5.1)
[2018-01-25 18:32] LABS: Albumin 3.6 g/dL (3.4-5.0); BUN/Creatinine Ratio 9.4; Bilirubin, Total 0.8 mg/dL (0.2-1.0); Calcium 9.3 mg/dL (8.5-10.1)
== END | disposition home or self-care (01) ==
LOC: LAB 10:19
PROVIDERS: ATTEND Internal Medicine
DX: C21.8 Malignant neoplasm of overlapping sites of rectum, anus and anal canal (principal)
CPT/HCPCS: 36415; 80053; 83615; 85025

== ENCOUNTER → 2018-02-07 | Outpatient (CLI) | payer BC ==
[2018-02-07 13:53] LABS: Basophils # (auto) 0 uL; Eosinophils # (auto) 0.1 uL; Hematocrit 32.3 % (36.0-46.0); Hemoglobin 11.1 g/dL (12.2-16.2); Lymphocytes # (auto) 0.5 uL; Monocytes # (auto) 0.6 uL; Platelet Count (auto) 233 10^3/uL (140-450); Red Blood Cells 3.14 10^6/uL (4.0-5.20)
[2018-02-07 13:55] LABS: Basophils % (auto) 0.7 % (0.0-2.0); Eosinophils % (auto) 1.7 % (0.0-7.0); Lymphocytes % (auto) 12.6 % (10.0-50.0); Mean Corpuscular Hemoglobin 35.4 pg (28.0-32.0); Mean Corpuscular Hgb Conc. 34.3 g/dL (32.0-36.0); Monocytes % (auto) 15.7 % (0.0-12.0); Neutrophils # (auto) 2.7 uL; Neutrophils % (auto) 69.3 % (37.0-80.0); Nucleated Red Blood Cells % 0.6 %; White Blood Cell 3.8 10^3/uL (4.4-10.8)
[2018-02-07 14:02] LABS: Albumin 3.6 g/dL (3.4-5.0); Calcium 9.4 mg/dL (8.5-10.1); Potassium 3.8 mmol/L (3.5-5.1)
[2018-02-07 14:06] LABS: BUN/Creatinine Ratio 10.3; Bilirubin, Total 0.6 mg/dL (0.2-1.0)
[2018-02-08 12:53] LABS: Potassium 3.6 mmol/L (3.5-5.1)
[2018-02-08 13:02] LABS: Albumin 3.1 g/dL (3.4-5.0); BUN/Creatinine Ratio 9.8; Bilirubin, Total 0.5 mg/dL (0.2-1.0); Calcium 8.6 mg/dL (8.5-10.1); Total Protein 6.1 g/dL (6.4-8.2)
== END | disposition home or self-care (01) ==
LOC: LAB 13:32
PROVIDERS: ATTEND Internal Medicine
DX: C21.8 Malignant neoplasm of overlapping sites of rectum, anus and anal canal (principal)
CPT/HCPCS: 36415; 80053; 83615; 85025

== ENCOUNTER → 2018-02-21 | Outpatient (CLI) | payer BC ==
[2018-02-21 09:27] LABS: Basophils # (auto) 0 uL; Eosinophils # (auto) 0.1 uL; Hemoglobin 11.7 g/dL (12.2-16.2); Lymphocytes # (auto) 0.4 uL; Monocytes # (auto) 0.4 uL
[2018-02-21 09:29] LABS: Basophils % (auto) 0.9 % (0.0-2.0); Eosinophils % (auto) 1.8 % (0.0-7.0); Hematocrit 34.2 % (36.0-46.0); Lymphocytes % (auto) 11.3 % (10.0-50.0); Mean Corpuscular Hemoglobin 35.6 pg (28.0-32.0); Mean Corpuscular Hgb Conc. 34.3 g/dL (32.0-36.0); Mean Corpuscular Volume 103.9 fL (80.0-100.0); Monocytes % (auto) 11.1 % (0.0-12.0); Neutrophils # (auto) 2.7 uL; Neutrophils % (auto) 74.9 % (37.0-80.0); Platelet Count (auto) 197 10^3/uL (140-450); Red Blood Cells 3.29 10^6/uL (4.0-5.20); Red Cell Distribution Width 19.2 % (11.8-14.3); White Blood Cell 3.6 10^3/uL (4.4-10.8)
[2018-02-21 09:52] LABS: Albumin 3.4 g/dL (3.4-5.0); Calcium 8.8 mg/dL (8.5-10.1); Potassium 3.9 mmol/L (3.5-5.1)
[2018-02-21 09:57] LABS: BUN/Creatinine Ratio 12.3; Bilirubin, Total 0.5 mg/dL (0.2-1.0); Total Protein 6.7 g/dL (6.4-8.2)
== END | disposition home or self-care (01) ==
LOC: LAB 08:58
PROVIDERS: ATTEND Internal Medicine
DX: C21.8 Malignant neoplasm of overlapping sites of rectum, anus and anal canal (principal)
CPT/HCPCS: 36415; 80053; 83615; 85025

== ENCOUNTER → 2018-04-13 | Outpatient (CLI) | payer BC ==
[~2018-04-13] MED LIST changes: +HYDR-4683 PO
[2018-04-13 10:10] LABS: Basophils # (auto) 0 uL; Eosinophils # (auto) 0.1 uL; Eosinophils % (auto) 2.3 % (0.0-7.0); Lymphocytes # (auto) 0.4 uL; Mean Corpuscular Hgb Conc. 34.5 g/dL (32.0-36.0); Monocytes # (auto) 0.3 uL; Neutrophils # (auto) 2.6 uL; Platelet Count (auto) 157 10^3/uL (140-450); White Blood Cell 3.4 10^3/uL (4.4-10.8)
[2018-04-13 10:13] LABS: Basophils % (auto) 0.7 % (0.0-2.0); Hemoglobin 13.8 g/dL (12.2-16.2); Lymphocytes % (auto) 11.6 % (10.0-50.0); Mean Corpuscular Hemoglobin 37.3 pg (28.0-32.0); Monocytes % (auto) 9.7 % (0.0-12.0); Neutrophils % (auto) 75.7 % (37.0-80.0); Red Cell Distribution Width 14.1 % (11.8-14.3)
[2018-04-13 10:59] LABS: Albumin 4.1 g/dL (3.4-5.0); BUN/Creatinine Ratio 16.7; Calcium 9.3 mg/dL (8.5-10.1); Potassium 4.4 mmol/L (3.5-5.1)
[2018-04-13 11:01] LABS: Bilirubin, Total 0.5 mg/dL (0.2-1.0); Total Protein 7.7 g/dL (6.4-8.2)
== END | disposition home or self-care (01) ==
LOC: LAB 09:36
PROVIDERS: ATTEND Internal Medicine
DX: C21.8 Malignant neoplasm of overlapping sites of rectum, anus and anal canal (principal)
CPT/HCPCS: 36415; 80053; 82378; 83615; 85025

== ENCOUNTER → 2018-04-17 | Day surgery (SDC) | payer BC ==
[2018-04-13 09:57] LABS: Basophils # (auto) 0 uL; Eosinophils # (auto) 0.1 uL; Mean Corpuscular Hemoglobin 37.2 pg (28.0-32.0); Mean Corpuscular Hgb Conc. 34.3 g/dL (32.0-36.0); Monocytes # (auto) 0.3 uL; Neutrophils # (auto) 2.6 uL; White Blood Cell 3.4 10^3/uL (4.4-10.8)
[2018-04-13 09:59] LABS: Basophils % (auto) 0.6 % (0.0-2.0); Eosinophils % (auto) 2.6 % (0.0-7.0); Hematocrit 40.2 % (36.0-46.0); Hemoglobin 13.8 g/dL (12.2-16.2); Lymphocytes # (auto) 0.4 uL; Lymphocytes % (auto) 11.5 % (10.0-50.0); Mean Corpuscular Volume 108.3 fL (80.0-100.0); Monocytes % (auto) 9.3 % (0.0-12.0); Platelet Count (auto) 156 10^3/uL (140-450); Red Blood Cells 3.71 10^6/uL (4.0-5.20); Red Cell Distribution Width 14.1 % (11.8-14.3)
[2018-04-13 10:20] LABS: INR 0.97 (0.9-1.15); Partial Thromboplastin Time 27.3 sec (23.78-33.04); Prothrombin Time 10.4 sec (9.27-12.13)
[~2018-04-17] VITALS: Ht 172.7 cm; Wt 77.1 kg
[~2018-04-17] MED LIST changes: -ASCO500T11 PO; -ASPI81CH43 GT; -ATEN-60 PO; -CALC-386 OR; -CHOL20007 PO; +FLUMAZENIL 0.1 MG/ML INJ 10ML MDV IV ONE; -HYDR25TA4 PO; -MAGIC MT; -MULT-242 OR; +NALOXONE HCL 0.4 MG/ML VIAL ONE; -OMEG100078 PO; -SIMV10TA84 PO; +SODIUM CHLORIDE LOCK 10 ML ONE; +diphenhdrAMINE HCL 50 MG/1 ML VL ONE
[2018-04-17] MEDS: fentaNYL CITRATE 100 MCG/2 ML VL ONE ×2 (09:05→09:08)
[2018-04-17] MEDS: MIDAZOLAM HCL 5 MG/ML-1ML VIAL ONE ×2 (09:05→09:08)
[2018-04-17 10:06] VITALS: BP 140/46
== END | disposition home or self-care (01) ==
LOC: GI 07:42
PROVIDERS: ATTEND Internal Medicine Gastroenterology
DX: Z12.11 Encounter for screening for malignant neoplasm of colon (principal); K57.30 Diverticulosis of large intestine without perforation or abscess without bleeding; Z85.048 Personal history of other malignant neoplasm of rectum, rectosigmoid junction, and anus; Z98.51 Tubal ligation status; F32.9 Major depressive disorder, single episode, unspecified; Z98.890 Other specified postprocedural states; Z90.49 Acquired absence of other specified parts of digestive tract; Z82.49 Family history of ischemic heart disease and other diseases of the circulatory system; Z79.1 Long term (current) use of non-steroidal anti-inflammatories (NSAID)
CPT/HCPCS: 36415; 45380; 85025; 85610; 85730; J1200; J2250; J3010; 99152

== ENCOUNTER → 2018-07-03 | Outpatient (CLI) | payer BC ==
[~2018-07-03] MED LIST changes: -FLUMAZENIL 0.1 MG/ML INJ 10ML MDV IV ONE; -NALOXONE HCL 0.4 MG/ML VIAL ONE; -SODIUM CHLORIDE LOCK 10 ML ONE; -diphenhdrAMINE HCL 50 MG/1 ML VL ONE
[2018-07-03 08:45] LABS: Basophils # (auto) 0 uL; Eosinophils # (auto) 0.1 uL; Lymphocytes # (auto) 0.4 uL; Monocytes # (auto) 0.2 uL; Neutrophils # (auto) 2.2 uL; Platelet Count (auto) 186 10^3/uL (140-450); Red Cell Distribution Width 13.6 % (11.8-14.3)
[2018-07-03 08:47] LABS: Basophils % (auto) 0.9 % (0.0-2.0); Eosinophils % (auto) 3.5 % (0.0-7.0); Hematocrit 40.1 % (36.0-46.0); Hemoglobin 13.7 g/dL (12.2-16.2); Lymphocytes % (auto) 14.7 % (10.0-50.0); Mean Corpuscular Hemoglobin 36.7 pg (28.0-32.0); Mean Corpuscular Hgb Conc. 34.2 g/dL (32.0-36.0); Mean Corpuscular Volume 107.6 fL (80.0-100.0); Monocytes % (auto) 8.2 % (0.0-12.0); Neutrophils % (auto) 72.7 % (37.0-80.0); Red Blood Cells 3.73 10^6/uL (4.0-5.20)
[2018-07-03 09:36] LABS: Carcinoembryonic Antigen 2.14 ng/mL (<5.0 OR =)
[2018-07-03 09:37] LABS: Folate (Folic Acid) 10.81 ng/mL (5.38-24)
[2018-07-03 11:22] LABS: Urine Bacteria NONE SEEN /hpf (None Seen); Urine Blood Negative /uL (Negative); Urine Specific Gravity 1.006 (1.001-1.035); Urine WBC 2 /hpf (0 - 5)
[2018-07-03 17:59] LABS: Albumin 4.2 g/dL (3.4-5.0); BUN/Creatinine Ratio 18.2; Calcium 9.3 mg/dL (8.5-10.1); Potassium 4.7 mmol/L (3.5-5.1); Uric Acid 5.9 mg/dL (2.6-6.0)
[2018-07-03 18:02] LABS: Bilirubin, Total 0.6 mg/dL (0.2-1.0); Total Protein 7.8 g/dL (6.4-8.2)
== END | disposition home or self-care (01) ==
LOC: LAB 07:15
PROVIDERS: ATTEND Internal Medicine
DX: C21.8 Malignant neoplasm of overlapping sites of rectum, anus and anal canal (principal); E78.5 Hyperlipidemia, unspecified
CPT/HCPCS: 36415; 80053; 80061; 81001; 82306; 82378; 82607; 82746; 83036; 83615; 84443; 84550; 85025

== ENCOUNTER → 2018-07-07 | Day surgery (SDC) | payer BC ==
[2018-07-06 09:03] LABS: INR 0.96 (0.9-1.15); Partial Thromboplastin Time 26.1 sec (23.78-33.04); Prothrombin Time 10.3 sec (9.27-12.13)
[~2018-07-07] VITALS: Ht 170.2 cm; Wt 81.2 kg
[~2018-07-07] MED LIST changes: +ASPI81TA27 PO; +FLUMAZENIL 0.1 MG/ML INJ 10ML MDV IV ONE; +NALOXONE HCL 0.4 MG/ML VIAL ONE; +SODIUM CHLORIDE LOCK 10 ML ONE; +diphenhdrAMINE HCL 50 MG/1 ML VL ONE
[2018-07-07] MEDS: fentaNYL CITRATE 100 MCG/2 ML VL ONE ×3 (08:46→09:03)
[2018-07-07] MEDS: MIDAZOLAM HCL 5 MG/ML-1ML VIAL ONE ×3 (08:56→09:03)
[2018-07-07 09:51] VITALS: BP 133/62
== END | disposition home or self-care (01) ==
LOC: GI 07:25
PROVIDERS: ATTEND Internal Medicine Gastroenterology
DX: D12.4 Benign neoplasm of descending colon (principal); K57.30 Diverticulosis of large intestine without perforation or abscess without bleeding; K62.89 Other specified diseases of anus and rectum; E78.5 Hyperlipidemia, unspecified; M16.9 Osteoarthritis of hip, unspecified; I10 Essential (primary) hypertension; Z85.040 Personal history of malignant carcinoid tumor of rectum; Z92.3 Personal history of irradiation; Z92.21 Personal history of antineoplastic chemotherapy; Z96.649 Presence of unspecified artificial hip joint; Z80.3 Family history of malignant neoplasm of breast; Z82.49 Family history of ischemic heart disease and other diseases of the circulatory system; Z82.61 Family history of arthritis; Z82.5 Family history of asthma and other chronic lower respiratory diseases; Z78.0 Asymptomatic menopausal state; Z68.27 Body mass index [BMI] 27.0-27.9, adult; Z79.82 Long term (current) use of aspirin; Z79.899 Other long term (current) drug therapy
CPT/HCPCS: 36415; 45380; 85610; 85730; 88305; J1200; J2250; J3010; J7030; 99152; 99153

== ENCOUNTER → 2018-09-06 | Outpatient (CLI) | payer BC ==
[~2018-09-06] VITALS: Ht 172.7 cm; Wt 81.6 kg
[~2018-09-06] MED LIST changes: +ADENOSINE 69 MG in GIVE UN-DILUTED 0 ML IV STA; -FLUMAZENIL 0.1 MG/ML INJ 10ML MDV IV ONE; -NALOXONE HCL 0.4 MG/ML VIAL ONE; -SODIUM CHLORIDE LOCK 10 ML ONE; -diphenhdrAMINE HCL 50 MG/1 ML VL ONE
== END | disposition home or self-care (01) ==
LOC: XYW 07:55
PROVIDERS: ATTEND Internal Medicine
DX: R07.9 Chest pain, unspecified (principal)
CPT/HCPCS: 78452; 93017; A9500; J0153

== ENCOUNTER → 2018-09-22 | Outpatient (CLI) | payer BC ==
[~2018-09-22] MED LIST changes: -ADENOSINE 69 MG in GIVE UN-DILUTED 0 ML IV STA
== END | disposition home or self-care (01) ==
LOC: XYW 07:28
PROVIDERS: ATTEND Internal Medicine
DX: I11.9 Hypertensive heart disease without heart failure (principal)
CPT/HCPCS: 93306

== ENCOUNTER → 2018-09-29 | Outpatient (CLI) | payer BC ==
[~2018-09-29] MED LIST changes: +ASPI-404 PO; -ASPI81TA27 PO; -HYDR-4683 PO; +HYDR-4833 PO; +LOSA25TA38 PO; -LOSA25TA40 PO
[2018-10-03 09:06] LABS: Methylmalonic Acid 168 nmol/L (0-378)
== END | disposition home or self-care (01) ==
LOC: LAB 06:57
PROVIDERS: ATTEND Psychiatry & Neurology Neurology
DX: G62.9 Polyneuropathy, unspecified (principal)
CPT/HCPCS: 36415; 82951; 83090; 84155; 84165

== ENCOUNTER → 2018-11-09 | Outpatient (CLI) | payer BC ==
[2018-11-09 07:25] LABS: Basophils # (auto) 0 uL; Eosinophils # (auto) 0.2 uL; Hemoglobin 12.4 g/dL (12.2-16.2); Lymphocytes # (auto) 0.5 uL; Monocytes # (auto) 0.4 uL; Nucleated Red Blood Cells % 0.1 %; Red Cell Distribution Width 13.7 % (11.8-14.3); White Blood Cell 3.1 10^3/uL (4.4-10.8)
[2018-11-09 07:27] LABS: Basophils % (auto) 0.5 % (0.0-2.0); Eosinophils % (auto) 6.8 % (0.0-7.0); Lymphocytes % (auto) 14.9 % (10.0-50.0); Mean Corpuscular Hemoglobin 37.7 pg (28.0-32.0); Mean Corpuscular Hgb Conc. 34.4 g/dL (32.0-36.0); Mean Corpuscular Volume 109.6 fL (80.0-100.0); Monocytes % (auto) 12.1 % (0.0-12.0); Neutrophils % (auto) 65.7 % (37.0-80.0); Platelet Count (auto) 160 10^3/uL (140-450); Red Blood Cells 3.29 10^6/uL (4.0-5.20)
[2018-11-09 07:34] LABS: Albumin 3.9 g/dL (3.4-5.0); Calcium 8.9 mg/dL (8.5-10.1); Potassium 4.3 mmol/L (3.5-5.1)
[2018-11-09 07:39] LABS: BUN/Creatinine Ratio 17.2; Bilirubin, Total 0.6 mg/dL (0.2-1.0); Total Protein 7.5 g/dL (6.4-8.2)
== END | disposition home or self-care (01) ==
LOC: LAB 07:05
PROVIDERS: ATTEND Nurse Practitioner
DX: E78.5 Hyperlipidemia, unspecified (principal)
CPT/HCPCS: 36415; 80053; 80061; 85025

== ENCOUNTER → 2018-12-14 | Outpatient (CLI) | payer BC ==
[2018-12-14 08:34] LABS: Basophils # (auto) 0 uL; Eosinophils # (auto) 0.2 uL; Mean Corpuscular Hemoglobin 37.4 pg (28.0-32.0); Monocytes # (auto) 0.4 uL; Neutrophils # (auto) 2.6 uL; White Blood Cell 3.6 10^3/uL (4.4-10.8)
[2018-12-14 08:38] LABS: Basophils % (auto) 1.3 % (0.0-2.0); Eosinophils % (auto) 4.4 % (0.0-7.0); Hematocrit 37.2 % (36.0-46.0); Hemoglobin 12.8 g/dL (12.2-16.2); Lymphocytes # (auto) 0.5 uL; Lymphocytes % (auto) 12.7 % (10.0-50.0); Mean Corpuscular Hgb Conc. 34.4 g/dL (32.0-36.0); Mean Corpuscular Volume 108.5 fL (80.0-100.0); Monocytes % (auto) 10.1 % (0.0-12.0); Neutrophils % (auto) 71.5 % (37.0-80.0); Nucleated Red Blood Cells % 0.4 %; Platelet Count (auto) 168 10^3/uL (140-450); Red Blood Cells 3.43 10^6/uL (4.0-5.20); Red Cell Distribution Width 13.5 % (11.8-14.3)
== END | disposition home or self-care (01) ==
LOC: LAB 07:22
PROVIDERS: ATTEND Internal Medicine
DX: R68.89 Other general symptoms and signs (principal)
CPT/HCPCS: 36415; 85025

== ENCOUNTER 2018-12-16 12:53 | Inpatient (IN) | payer BC ==
[~2018-12-16] VITALS: Ht 167.6 cm; Wt 92.4 kg
[2018-12-16] MEDS: SODIUM CHLORIDE 0.9% 1,000 ML IV SCH ×2 (13:34→21:14)
[2018-12-16 13:42] LABS: Hemoglobin 12.9 g/dL (12.2-16.2); Lymphocytes # (auto) 0.4 uL; Monocytes # (auto) 0.3 uL; Nucleated Red Blood Cells % 0.1 %
[2018-12-16 13:43] LABS: Basophils # (auto) 0.1 uL; Basophils % (auto) 2.4 % (0.0-2.0); Eosinophils # (auto) 0.2 uL; Hematocrit 37.4 % (36.0-46.0); Lymphocytes % (auto) 8.5 % (10.0-50.0); Mean Corpuscular Hemoglobin 37.4 pg (28.0-32.0); Mean Corpuscular Hgb Conc. 34.4 g/dL (32.0-36.0); Mean Corpuscular Volume 108.9 fL (80.0-100.0); Monocytes % (auto) 6.7 % (0.0-12.0); Neutrophils % (auto) 79.4 % (37.0-80.0); Platelet Count (auto) 168 10^3/uL (140-450); Red Blood Cells 3.44 10^6/uL (4.0-5.20); Red Cell Distribution Width 13.7 % (11.8-14.3)
[2018-12-16] MEDS ORDERED: PROMETHAZINE HCL 25 MG/ML 1ML IV PRN (13:45)
[2018-12-16] MEDS ORDERED: HYDROcodone-ACET 5/325MG TAB PO PRN (13:45)
[2018-12-16] MEDS: PANTOPRAZOLE 40 MG TAB PO SCH ×2 (13:45→21:06)
[2018-12-16] MEDS ORDERED: ACETAMINOPHEN 500 MG TAB PO PRN (13:45)
[2018-12-16] MEDS ORDERED: NITROGLYCERIN 0.4 MG SL TAB SL PRN (13:45)
[2018-12-16] MEDS ORDERED: MORPHINE SULFATE 4 MG/ML SYR/VIAL IV PRN (13:45)
[2018-12-16] MEDS ORDERED: MORPHINE SULF INJ 2 MG/ML SYRINGE 1ML IV PRN (13:45)
[2018-12-16 14:02] LABS: Albumin 3.9 g/dL (3.4-5.0); Anion Gap 6 (5-15); Blood Urea Nitrogen 18 mg/dL (7-18); Calcium 9.2 mg/dL (8.5-10.1); Carbon Dioxide 27 mmol/L (21-32); Chloride 104 mmol/L (98-107); Glucose 97 mg/dL (74-106); INR 0.96 (0.9-1.15); Potassium 4.5 mmol/L (3.5-5.1); Sodium 137 mmol/L (136-145)
[2018-12-16 14:17] LABS: Alanine Aminotransferase 57 U/L (13-56); Alkaline Phosphatase 137 U/L (45-117); Amylase 39 U/L (25-115); Aspartate Aminotransferase 44 U/L (15-37); BUN/Creatinine Ratio 19.8; Bilirubin, Total 0.4 mg/dL (0.2-1.0); GFR African American 80 mL/min; GFR Non-African American 66 mL/min; Lipase 98 U/L (73-393); Total Protein 7.6 g/dL (6.4-8.2)
--- NOTE | 2018-12-16 15:15 | NUR ---
RECEIVED PATIENT TO THE FLOOR, AWAKE ALERT AND ORIENTED. AMBULATORY, BED LOCKED IN LOWEST POSITION WITH TWO SIDE RAILS UP AND CALL LIGHT IN REACH. INSTRUCTED THE PATIENT ON THE PLAN OF CARE. PER PATIENT DAUGHTER DAVONTE WILL BRING IN MEDICATION LIST.
--- NOTE | 2018-12-16 16:00 | NUR ---
PATIENTS BP HIGH 187/[address] FRIAS FOR ORDERS TO RESUME HOME MEDICATIONS WILL AWAIT CALL BACK.
[2018-12-16 16:20] VITALS: BP 187/77
[2018-12-16 17:00] VITALS: BP 187/77
[2018-12-16] MEDS ORDERED: TEMAZEPAM 15 MG CAP PO PRN (18:00)
[2018-12-16] MEDS ORDERED: LOSARTAN POTASSIUM 25 MG TAB PO ONE (18:00)
[2018-12-16] MEDS ORDERED: ATENOLOL 50 MG TAB PO ONE (18:00)
--- NOTE | 2018-12-16 18:10 | NUR ---
RECEIVED CALL BACK FROM DR FRIAS HOME MEDICATIONS ARE TO BE RESUMED ATENOLOL 50 MG BID LOSARTAN 25 MG BID LABETALOL 10 IV Q 2 PRN SBP > 160 RESTORIL 15 MG QHS PRN ORDERS PLACED.
[2018-12-16 18:18] LABS: Hematocrit 36.9 % (36.0-46.0); Hemoglobin 12.6 g/dL (12.2-16.2)
--- NOTE | 2018-12-16 19:35 | NUR ---
Opening Shift Note Assumed care of patient, awake and alert. No S/S of distress/SOB or pain. Instructed on POC and to call for assist PRN, will continue to monitor for changes Q1hr and PRN.
[2018-12-16] MEDS: LABETALOL HCL 5 MG/ML ML 20ML VIAL IV PRN (19:56)
[2018-12-16 20:28] LABS: Urine Bacteria FEW /hpf (None Seen); Urine Blood Negative /uL (Negative); Urine Specific Gravity 1.009 (1.001-1.035); Urine WBC 7 /hpf (0 - 5)
[2018-12-16] MEDS: LOSARTAN POTASSIUM 25 MG TAB PO SCH (21:15)
[2018-12-16] MEDS: ATENOLOL 50 MG TAB PO SCH (21:15)
[2018-12-16 21:26] VITALS: BP 165/81
[2018-12-17 01:36] LABS: Hematocrit 31.8 % (36.0-46.0)
[2018-12-17 05:17] VITALS: BP 115/77
[2018-12-17] MEDS: SODIUM CHLORIDE 0.9% 1,000 ML IV SCH (06:01)
[2018-12-17 06:33] LABS: Hematocrit 34.5 % (36.0-46.0); Hemoglobin 11.7 g/dL (12.2-16.2)
--- NOTE | 2018-12-17 08:00 | NUR ---
Opening Shift Note Assumed care of patient, awake and alert. No S/S of distress/SOB or pain. Patient stated having bright red stools still. Instructed on POC and to call for assist PRN, will continue to monitor for changes Q1hr and PRN.
[2018-12-17 09:00] VITALS: BP 153/76
[2018-12-17] MEDS: PANTOPRAZOLE 40 MG TAB PO SCH (09:52)
[2018-12-17] MEDS: ATENOLOL 50 MG TAB PO SCH (09:53)
[2018-12-17] MEDS: LOSARTAN POTASSIUM 25 MG TAB PO SCH (09:53)
[2018-12-17] MEDS: LABETALOL HCL 5 MG/ML ML 20ML VIAL IV PRN (09:59)
[2018-12-17] MEDS ORDERED: ATENOLOL 50 MG TAB PO SCH (10:00)
[2018-12-17] MEDS ORDERED: LOSARTAN POTASSIUM 25 MG TAB PO SCH (10:00)
[2018-12-17] MEDS ORDERED: INFLUENZA QUAD 2019-2020 0.5ml SYRG IM ONE (10:00)
[2018-12-17] MEDS ORDERED: cloNIDine HCL 0.1 MG TAB PO ONE (11:00)
--- NOTE | 2018-12-17 11:14 | NUR ---
Patient will discharge patient today.
--- NOTE | 2018-12-17 11:15 | NUR ---
Patient does not take Catapres PO.
--- NOTE | 2018-12-17 11:30 | NUR ---
Flu Vaccine not available yet at the pharmacy.
--- NOTE | 2018-12-17 12:11 | NUR ---
Patient complained of headache 09/20. Ordered Tylenol PO administered.
--- NOTE | 2018-12-17 12:35 | NUR ---
Discharge instructions given as ordered. Encourage to follow up with PMD as instructed. Follow up with hematology/oncology Dr. Soto and GI Dr. Mckeon in 2 weeks. All questions and concerns addressed. Patient verbalized understanding. Medication reconciliation form completed and copy given to patient. IV removed with catheter intact, pressure dressing applied. Telemetry unit returned to ICU. Patient ambulated to vehicle with all personal belongings, accompanied by staff and family member. No distress noted at time of departure.
== END 2018-12-17 12:35 | disposition home or self-care (01) | DRG 379 ==
LOC: ER 12:53 → TELE-EAST 12:54
PROVIDERS: ADMIT Internal Medicine; ATTEND Internal Medicine
DX: K62.5 Hemorrhage of anus and rectum (principal); D50.0 Iron deficiency anemia secondary to blood loss (chronic); Z96.641 Presence of right artificial hip joint; K57.90 Diverticulosis of intestine, part unspecified, without perforation or abscess without bleeding; E78.00 Pure hypercholesterolemia, unspecified; I10 Essential (primary) hypertension; E78.5 Hyperlipidemia, unspecified; Z79.82 Long term (current) use of aspirin; Z85.048 Personal history of other malignant neoplasm of rectum, rectosigmoid junction, and anus; Z86.008 Personal history of in-situ neoplasm of other site; Z87.19 Personal history of other diseases of the digestive system; Z92.21 Personal history of antineoplastic chemotherapy; Z92.3 Personal history of irradiation; Z90.49 Acquired absence of other specified parts of digestive tract
CPT/HCPCS: 36415; 76705; 80053; 81001; 82150; 82270; 82378; 83690; 84484; 85014; 85018; 85025; 85045; 85610; 96360; G0378

== ENCOUNTER 2019-02-26 08:23 | Inpatient (IN) | payer BC ==
[~2019-02-26] VITALS: Ht 167.6 cm; Wt 93.7 kg
--- NOTE | 2019-02-26 08:37 | NUR ---
Direct Admit Note YESIKATHEO admitted to [facility] unit as a direct admit per MD order. Patient oriented to primary RN, unit, room, bed, and unit policies regarding patient care and visiting hours. Patient weighed by bedscale and encouraged to call if they need something. All questions and concerns addressed, patient verbalized understanding. MD notified of patients arrival awaiting orders.
[2019-02-26 09:00] VITALS: BP 98/50
[2019-02-26] MEDS ORDERED: FOLITAB22 PO (10:12)
[2019-02-26] MEDS ORDERED: HCTZ25T PO (10:12)
[2019-02-26] MEDS ORDERED: DULO30CA PO (10:12)
[2019-02-26] MEDS ORDERED: AMLO10TA13 PO (10:12)
[2019-02-26] MEDS ORDERED: MULT-777 PO (10:12)
[2019-02-26] MEDS ORDERED: FERR27TA2 PO (10:12)
[2019-02-26] MEDS ORDERED: CLON0.1T PO (10:12)
[2019-02-26] MEDS ORDERED: LORazepam 2MG/ML-1ML VIAL IV ONE (11:30)
[2019-02-26] MEDS ORDERED: ONDANSETRON HCL 4 MG/2 ML VIAL IV PRN (11:30)
[2019-02-26 11:51] LABS: Basophils # (auto) 0 uL; Basophils % (auto) 0.8 % (0.0-2.0); Eosinophils # (auto) 0.1 uL; Eosinophils % (auto) 2.2 % (0.0-7.0); Hematocrit 36.1 % (36.0-46.0); Hemoglobin 12.3 g/dL (12.2-16.2); Lymphocytes # (auto) 0.5 uL; Lymphocytes % (auto) 11.4 % (10.0-50.0); Mean Corpuscular Hemoglobin 36.1 pg (28.0-32.0); Mean Corpuscular Volume 106.3 fL (80.0-100.0); Monocytes # (auto) 0.4 uL; Monocytes % (auto) 9.1 % (0.0-12.0); Neutrophils # (auto) 3.1 uL; Neutrophils % (auto) 76.5 % (37.0-80.0); Nucleated Red Blood Cells % 0.2 %; Platelet Count (auto) 164 10^3/uL (140-450); Red Blood Cells 3.39 10^6/uL (4.0-5.20); Red Cell Distribution Width 12.9 % (11.8-14.3); White Blood Cell 4.1 10^3/uL (4.4-10.8)
[2019-02-26 12:06] LABS: INR 1.13 (0.9-1.15); Partial Thromboplastin Time 28.8 sec (23.64-32.05)
[2019-02-26 12:15] LABS: Potassium 4.3 mmol/L (3.5-5.1)
[2019-02-26 12:19] LABS: BUN/Creatinine Ratio 17.2; Bilirubin, Total 0.5 mg/dL (0.2-1.0); Total Protein 7.5 g/dL (6.4-8.2)
[2019-02-26 13:00] VITALS: BP 102/53
[2019-02-26] MEDS: SODIUM CHLORIDE 0.9% 1,000 ML IV SCH (13:32)
[2019-02-26 14:48] LABS: Urine Bacteria FEW /hpf (None Seen); Urine Blood Negative /uL (Negative); Urine WBC 40 /hpf (0 - 5); Urine WBC Clumps PRESENT /hpf (None Seen)
[2019-02-26 17:00] VITALS: BP 114/65
[2019-02-26] MEDS: HYDROcodone-ACET 5/325MG TAB PO PRN ×2 (17:49→23:50)
--- NOTE | 2019-02-26 18:30 | NUR ---
MRI Keep patient NPO after 0300 for MRI on 02/27/19.
--- NOTE | 2019-02-26 19:19 | NUR ---
Opening Shift Note Assumed care of patient, awake and alert x4. No S/S of distress/SOB or pain. Call light is within reach, side rails up x2, bed is in lowest position. Instructed on POC and to call for assist PRN, will continue to monitor for changes Q1hr and PRN.
[2019-02-26 21:37] VITALS: BP 103/53
[2019-02-27] MEDS: SODIUM CHLORIDE 0.9% 1,000 ML IV SCH ×2 (01:26→12:28)
[2019-02-27 05:02] VITALS: BP 139/88
--- NOTE | 2019-02-27 07:40 | NUR ---
OPENING SHIFT NOTE: PATIENT AWAKE IN BED. A/OX4, RESPIRATIONS EVEN AND UNLABORED. UPDATED ON PLAN OF CARE AND BEING NPO FOR BREAKFAST, PATIENT VERBALIZED UNDERSTANDING. PATIENT DENIES ANY PAIN OR NAUSEA AT THIS TIME. BED IN LOWEST POSITION SIDE RAILS UP IN PLACE X2. EDUCATED USE OF CALL LIGHT, PATIENT ABLE TO RETURN DEMONSTRATION. WILL CONTINUE TO MONITOR.
[2019-02-27] MEDS ORDERED: GADOTERIDOL 279.3mg/mL 20ml Vial IV ONE (08:15)
--- NOTE | 2019-02-27 08:32 | NUR ---
PATIENT TAKEN DOWN TO MRI VIA WHEELCHAIR.
[2019-02-27 09:00] VITALS: BP 110/60
--- NOTE | 2019-02-27 09:21 | NUR ---
PATIENT BACK IN ROOM. NO SIGNS OF DISTRESS NOTED.
--- NOTE | 2019-02-27 11:27 | NUR ---
DR. KORIN FLORES.
[2019-02-27] MEDS ORDERED: cefTRIAXone 1GM/50ML D5W 50 ML IV ONE (11:30)
[2019-02-27] MEDS ORDERED: FOLIC ACID 1 MG, THIAMINE INJ 100 MG in D5W 5% 50 ML INJ ONE (12:45)
[2019-02-27] MEDS ORDERED: THIAMINE 100mg/ml INJ (200mg/2ml VIAL) IV ONE (12:45)
[2019-02-27 13:00] VITALS: BP 111/66
--- NOTE | 2019-02-27 13:09 | NUR ---
EDUCATED PATIENT TO INFORM THIS RN WHEN USING BATHROOM FOR ASSESSMENT OF BLOOD IN STOOL. PATIENT NOTED TO HAVE VAUGHN RED BLOOD ON LINENS AND IN TOILET.
--- NOTE | 2019-02-27 13:37 | NUR ---
PATIENT TAKEN DOWN FOR SECOND MRI ORDER.
--- NOTE | 2019-02-27 14:10 | NUR ---
PATIENT BACK IN ROOM FROM MRI. NEW GOWN GIVEN AND IV RE-INITIATED.
[2019-02-27] MEDS: HYDROcodone-ACET 5/325MG TAB PO PRN ×2 (15:22→21:31)
[2019-02-27] MEDS ORDERED: TEMAZEPAM 15 MG CAP PO PRN (15:30)
--- NOTE | 2019-02-27 16:34 | NUR ---
PATIENT REQUESTING SOMETHING TO HELP SLEEP TONIGHT, REPORTS NOT SLEEPING WELL LAST NIGHT, ORDERS RECEIVED FROM DR. LANGLEY.
[2019-02-27 17:00] VITALS: BP 129/69
--- NOTE | 2019-02-27 19:26 | NUR ---
CARE ENDORSED TO GISSELL OCHOA.
--- NOTE | 2019-02-27 19:35 | NUR ---
Opening Shift Note Assumed care of patient, awake and alert x4. No S/S of distress/SOB or pain. Call light is within reach, side rails up x2, bed is in lowest position. Instructed on POC and to call for assist PRN. All questions and concerns answered, will continue to monitor for changes Q1hr and PRN.
--- NOTE | 2019-02-27 20:15 | NUR ---
IV removed due to infiltration. Catheter was intact on removal and discontinued with clean technique. Pressure dressing was applied to the site. Patient tolerated well. She is currently refusing another IV to be placed at this time stating if she needs one tomorrow for IV antibiotics they can put one in then. Will continue to monitor.
[2019-02-27 21:33] VITALS: BP 116/65
[2019-02-28] MEDS: SODIUM CHLORIDE 0.9% 1,000 ML IV SCH (03:30)
[2019-02-28 05:04] VITALS: BP 128/82
--- NOTE | 2019-02-28 07:19 | NUR ---
OPENING SHIFT NOTE: PATIENT AWAKE AMBULATING AROUND THE UNIT, AND BACK IN ROOM. PATIENT BREATHING EVEN AND UNLABORED. UPDATED ON PLAN OF CARE, PATIENT AWARE, AND VERBALIZED UNDERSTANDING. WILL CONTINUE TO MONITOR.
--- NOTE | 2019-02-28 08:20 | NUR ---
IV insertion IV access obtained, via clean sterile technique by inserting a 20G gauge catheter in the right forearm after 2 attempts. IV secured properly. No trauma to site. Patient tolerated procedure well.
[2019-02-28 08:38] VITALS: BP 132/69
[2019-02-28] MEDS ORDERED: cefTRIAXone 1GM/50ML D5W 50 ML IV SCH (09:00)
[2019-02-28] MEDS ORDERED: FOLIC ACID 1 MG, THIAMINE INJ 100 MG in D5W 5% 50 ML INJ SCH (10:00)
[2019-02-28] MEDS ORDERED: THIAMINE 100mg/ml INJ (200mg/2ml VIAL) IV SCH (10:00)
--- NOTE | 2019-02-28 11:22 | NUR ---
Nutrition Assessment Notes please see attached link for complete assessment Est. Needs ABW 76 [id number] kcal (23-25 kcal/kgBW), 76-83 gms pro (1.0-1.1 gms/kgBW). Will continue to monitor pertinent labs and reassess nutrient need prn Addendum: 02/28/19 at [address] Amended: Links added.
--- NOTE | 2019-02-28 11:29 | NUR ---
DR. LANGLEY AT BEDSIDE.
--- NOTE | 2019-02-28 12:10 | NUR ---
PATIENT DISCHARGED: PATIENT GIVEN ALL EDUCATION MATERIALS, AND HIGHLIGHTED F/U APPOINTMENT INFORMATION, EDUCATED TO CONTINUE CYMBALTA, AND FOLIC ACID. IV DISCONTINUED, CATHETER INTACT, MANUAL PRESSURE APPLIED. PATIENT AMBULATED OUT TO PRIVATE AUTO WITH ALL BELONGINGS AND WITHOUT INCIDENCE. RESPIRATIONS EVEN AND UNLABORED.
== END 2019-02-28 12:09 | disposition home or self-care (01) | DRG 378 ==
LOC: EAST 08:23
PROVIDERS: ADMIT Internal Medicine; ATTEND Internal Medicine
DX: K62.5 Hemorrhage of anus and rectum (principal); N39.0 Urinary tract infection, site not specified; I10 Essential (primary) hypertension; E66.9 Obesity, unspecified; K76.0 Fatty (change of) liver, not elsewhere classified; Z85.048 Personal history of other malignant neoplasm of rectum, rectosigmoid junction, and anus; Z92.3 Personal history of irradiation
CPT/HCPCS: 36415; 72195; 73723; 80053; 81001; 82607; 84443; 85025; 85610; 85730; 87086; G0378; J0696; J7060

== ENCOUNTER → 2019-03-15 | Outpatient (CLI) | payer BC ==
[~2019-03-15] MED LIST changes: +AMLO10TA13 PO; -ASPI-404 PO; +CLON0.1T PO; +DULO30CA PO; +FERR27TA2 PO; +FOLITAB22 PO; +HCTZ25T PO; -HYDR-4833 PO; +MULT-777 PO
[2019-03-15 14:26] LABS: Carcinoembryonic Antigen 1.01 ng/mL (<5.0 OR =)
[2019-03-15 14:27] LABS: Free T4 (Free Thyroxine) 0.93 ng/dL (0.89-1.76)
== END | disposition home or self-care (01) ==
LOC: LAB 12:14
PROVIDERS: ATTEND Internal Medicine
DX: K62.5 Hemorrhage of anus and rectum (principal); I10 Essential (primary) hypertension
CPT/HCPCS: 82378; 84439

== ENCOUNTER → 2019-05-04 | Day surgery (SDC) | payer BC ==
[2019-05-01 09:42] LABS: Basophils # (auto) 0 uL; Lymphocytes # (auto) 0.6 uL; Neutrophils % (auto) 70.7 % (37.0-80.0)
[2019-05-01 09:46] LABS: Basophils % (auto) 0.6 % (0.0-2.0); Eosinophils # (auto) 0.1 uL; Eosinophils % (auto) 3.4 % (0.0-7.0); Hematocrit 38.1 % (36.0-46.0); Hemoglobin 13.2 g/dL (12.2-16.2); Lymphocytes % (auto) 14.3 % (10.0-50.0); Mean Corpuscular Hemoglobin 34.6 pg (28.0-32.0); Mean Corpuscular Hgb Conc. 34.5 g/dL (32.0-36.0); Mean Corpuscular Volume 100.3 fL (80.0-100.0); Monocytes # (auto) 0.5 uL; Neutrophils # (auto) 2.9 uL; Platelet Count (auto) 185 10^3/uL (140-450); Red Cell Distribution Width 12.1 % (11.8-14.3); White Blood Cell 4.1 10^3/uL (4.4-10.8)
[2019-05-01 09:55] LABS: INR 1.04 (0.9-1.15); Partial Thromboplastin Time 27.9 sec (23.64-32.05)
[~2019-05-04] VITALS: Ht 172.7 cm; Wt 83.0 kg
[~2019-05-04] MED LIST changes: +ATO40T PO; -CLON0.1T PO; -FERR27TA2 PO; +FLUMAZENIL 0.1 MG/ML INJ 10ML MDV IV ONE; -LOSA25TA38 PO; +MIDAZOLAM HCL 5 MG/ML-1ML VIAL ONE; +NALOXONE HCL 0.4 MG/ML VIAL ONE; +SODIUM CHLORIDE LOCK 10 ML ONE; +diphenhdrAMINE HCL 50 MG/1 ML VL ONE
[2019-05-04] MEDS: fentaNYL CITRATE 100 MCG/2 ML VL ONE ×2 (09:18→09:19)
[2019-05-04 09:58] VITALS: BP 115/53
== END | disposition home or self-care (01) ==
LOC: GI 07:51
PROVIDERS: ATTEND Internal Medicine Gastroenterology
DX: K62.5 Hemorrhage of anus and rectum (principal); K62.89 Other specified diseases of anus and rectum; E78.5 Hyperlipidemia, unspecified; I10 Essential (primary) hypertension; Z79.899 Other long term (current) drug therapy; Z85.038 Personal history of other malignant neoplasm of large intestine; Z92.21 Personal history of antineoplastic chemotherapy; Z92.3 Personal history of irradiation; Z98.890 Other specified postprocedural states; Z86.010 Personal history of colon polyps; Z96.641 Presence of right artificial hip joint
CPT/HCPCS: 36415; 45331; 85025; 85610; 85730; 88305; 88342; J1200; J2250; J3010; J7030

== ENCOUNTER → 2019-06-06 | Outpatient (CLI) | payer BC ==
[~2019-06-06] MED LIST changes: -FLUMAZENIL 0.1 MG/ML INJ 10ML MDV IV ONE; -MIDAZOLAM HCL 5 MG/ML-1ML VIAL ONE; -NALOXONE HCL 0.4 MG/ML VIAL ONE; -SODIUM CHLORIDE LOCK 10 ML ONE; -diphenhdrAMINE HCL 50 MG/1 ML VL ONE
[2019-06-06 07:31] LABS: Basophils # (auto) 0 10 ^3/uL (0-0.2); Basophils % (auto) 0.5 % (0.0-2.0); Eosinophils # (auto) 0.1 10 ^3/uL (0-0.8); Hematocrit 38.8 % (36.0-46.0); Hemoglobin 13.4 g/dL (12.2-16.2); Lymphocytes # (auto) 0.6 10 ^3/uL (0.4-5.4); Lymphocytes % (auto) 13.6 % (10.0-50.0); Mean Corpuscular Hgb Conc. 34.7 g/dL (32.0-36.0); Mean Corpuscular Volume 98.2 fL (80.0-100.0); Monocytes # (auto) 0.4 10 ^3/uL (0-1.3); Monocytes % (auto) 8.4 % (0.0-12.0); Neutrophils # (auto) 3.3 10 ^3/uL (1.6-8.6); Neutrophils % (auto) 74.5 % (37.0-80.0); Platelet Count (auto) 166 10^3/uL (140-450); Red Blood Cells 3.95 10^6/uL (4.0-5.20); Red Cell Distribution Width 12.5 % (11.8-14.3); White Blood Cell 4.4 10^3/uL (4.4-10.8)
[2019-06-06 07:52] LABS: Albumin 3.9 g/dL (3.4-5.0); Calcium 9.6 mg/dL (8.5-10.1); Potassium 3.7 mmol/L (3.5-5.1)
[2019-06-06 08:01] LABS: BUN/Creatinine Ratio 16.3; Bilirubin, Total 0.4 mg/dL (0.2-1.0); Total Protein 7.5 g/dL (6.4-8.2)
== END | disposition home or self-care (01) ==
LOC: LAB 07:10
PROVIDERS: ATTEND Internal Medicine
DX: E78.5 Hyperlipidemia, unspecified (principal); I10 Essential (primary) hypertension; R00.2 Palpitations
CPT/HCPCS: 36415; 80053; 84443; 85025

== ENCOUNTER → 2019-07-11 | Outpatient (CLI) | payer BC ==
[2019-07-11 07:34] LABS: Basophils # (auto) 0 10 ^3/uL (0-0.2); Basophils % (auto) 1.1 % (0.0-2.0); Eosinophils # (auto) 0.1 10 ^3/uL (0-0.8); Eosinophils % (auto) 2.9 % (0.0-7.0); Hematocrit 40.2 % (36.0-46.0); Hemoglobin 13.7 g/dL (12.2-16.2); Lymphocytes # (auto) 0.6 10 ^3/uL (0.4-5.4); Lymphocytes % (auto) 14.4 % (10.0-50.0); Mean Corpuscular Hemoglobin 32.9 pg (28.0-32.0); Mean Corpuscular Hgb Conc. 34.2 g/dL (32.0-36.0); Mean Corpuscular Volume 96.2 fL (80.0-100.0); Monocytes # (auto) 0.4 10 ^3/uL (0-1.3); Monocytes % (auto) 10.8 % (0.0-12.0); Neutrophils # (auto) 2.9 10 ^3/uL (1.6-8.6); Neutrophils % (auto) 70.8 % (37.0-80.0); Platelet Count (auto) 193 10^3/uL (140-450); Red Blood Cells 4.18 10^6/uL (4.0-5.20); Red Cell Distribution Width 13.1 % (11.8-14.3); White Blood Cell 4.1 10^3/uL (4.4-10.8)
[2019-07-11 07:46] LABS: Urine Bacteria FEW /hpf (None Seen); Urine Blood Negative /uL (Negative); Urine Specific Gravity 1.013 (1.001-1.035); Urine WBC 12 /hpf (0 - 5)
[2019-07-11 08:07] LABS: Albumin 3.9 g/dL (3.4-5.0); Potassium 3.6 mmol/L (3.5-5.1)
[2019-07-11 08:13] LABS: BUN/Creatinine Ratio 26.2; Bilirubin, Total 0.5 mg/dL (0.2-1.0); Calcium 9.6 mg/dL (8.5-10.1); Total Protein 7.9 g/dL (6.4-8.2)
== END | disposition home or self-care (01) ==
LOC: LAB 07:04
PROVIDERS: ATTEND Internal Medicine
DX: Z00.00 Encounter for general adult medical examination without abnormal findings (principal); E78.5 Hyperlipidemia, unspecified; K62.5 Hemorrhage of anus and rectum
CPT/HCPCS: 36415; 80053; 80061; 81001; 82378; 83615; 84443; 85025

== ENCOUNTER → 2019-09-06 | Outpatient (CLI) | payer BC | END | disposition home or self-care (01) | LOC: LAB 07:13 | PROVIDERS: ATTEND Internal Medicine | DX: E03.9 Hypothyroidism, unspecified (principal) | CPT/HCPCS: 36415; 84443 ==

== ENCOUNTER → 2020-03-17 | Outpatient (CLI) | payer BC ==
[2020-03-17 08:00] LABS: Basophils # (auto) 0 10 ^3/uL (0-0.2); Basophils % (auto) 0.6 % (0.0-2.0); Eosinophils # (auto) 0.2 10 ^3/uL (0-0.8); Eosinophils % (auto) 4.2 % (0.0-7.0); Hematocrit 41.2 % (36.0-46.0); Hemoglobin 14.2 g/dL (12.2-16.2); Lymphocytes # (auto) 0.8 10 ^3/uL (0.4-5.4); Mean Corpuscular Hemoglobin 33.5 pg (28.0-32.0); Mean Corpuscular Hgb Conc. 34.4 g/dL (32.0-36.0); Mean Corpuscular Volume 97.1 fL (80.0-100.0); Monocytes # (auto) 0.4 10 ^3/uL (0-1.3); Monocytes % (auto) 9.6 % (0.0-12.0); Neutrophils # (auto) 3.2 10 ^3/uL (1.6-8.6); Neutrophils % (auto) 68.6 % (37.0-80.0); Nucleated Red Blood Cells % 0.2 %; Platelet Count (auto) 220 10^3/uL (140-450); Red Blood Cells 4.25 10^6/uL (4.0-5.20); Red Cell Distribution Width 13.1 % (11.8-14.3); White Blood Cell 4.7 10^3/uL (4.4-10.8)
[2020-03-17 08:25] LABS: Urine Bacteria NONE SEEN /hpf (None Seen); Urine Blood Negative /uL (Negative); Urine Hyaline Cast FEW /lpf (0 - 2); Urine WBC 4 /hpf (0 - 5)
[2020-03-17 09:39] LABS: Potassium 3.8 mmol/L (3.5-5.1)
[2020-03-17 09:58] LABS: Albumin 4.5 g/dL (3.4-5.0); BUN/Creatinine Ratio 22.4; Bilirubin, Total 0.4 mg/dL (0.2-1.0); Calcium 9.9 mg/dL (8.5-10.1); Total Protein 8.2 g/dL (6.4-8.2)
[2020-03-17 11:41] LABS: Folate (Folic Acid) > 24.00 ng/mL (5.38-24)
== END | disposition home or self-care (01) ==
LOC: LAB 07:10
PROVIDERS: ATTEND Internal Medicine
DX: I10 Essential (primary) hypertension (principal); E78.5 Hyperlipidemia, unspecified
CPT/HCPCS: 36415; 80053; 80061; 81001; 82746; 84443; 85025

== ENCOUNTER 2020-04-08 08:50 | Day surgery (SDC) | payer BC ==
[2020-04-03 09:15] LABS: Basophils # (auto) 0 10 ^3/uL (0-0.2); Basophils % (auto) 0.9 % (0.0-2.0); Eosinophils # (auto) 0.2 10 ^3/uL (0-0.8); Eosinophils % (auto) 3.6 % (0.0-7.0); Hematocrit 38.7 % (36.0-46.0); Hemoglobin 13.3 g/dL (12.2-16.2); Lymphocytes % (auto) 21.9 % (10.0-50.0); Mean Corpuscular Hemoglobin 33.5 pg (28.0-32.0); Mean Corpuscular Hgb Conc. 34.4 g/dL (32.0-36.0); Mean Corpuscular Volume 97.4 fL (80.0-100.0); Monocytes # (auto) 0.4 10 ^3/uL (0-1.3); Monocytes % (auto) 10.1 % (0.0-12.0); Neutrophils # (auto) 2.8 10 ^3/uL (1.6-8.6); Neutrophils % (auto) 63.5 % (37.0-80.0); Nucleated Red Blood Cells % 0.1 %; Platelet Count (auto) 183 10^3/uL (140-450); Red Blood Cells 3.98 10^6/uL (4.0-5.20); Red Cell Distribution Width 13.3 % (11.8-14.3); White Blood Cell 4.4 10^3/uL (4.4-10.8)
[2020-04-03 09:30] LABS: INR 1.01 (0.9-1.15); Partial Thromboplastin Time 26.3 sec (23.0-31.2)
[~2020-04-08] VITALS: Ht 172.7 cm; Wt 77.1 kg
[~2020-04-08 08:50] MED LIST changes: +AMLO-496 PO; -AMLO10TA13 PO; -HCTZ25T PO; +HYDR25TA5 PO; +LEVO75TA6 PO
[2020-04-08] MEDS ORDERED: SODIUM CHLORIDE LOCK 10 ML ONE (09:01)
[2020-04-08] MEDS ORDERED: diphenhdrAMINE HCL 50 MG/1 ML VL ONE (09:02)
[2020-04-08] MEDS: MIDAZOLAM HCL 5 MG/ML-1ML VIAL ONE ×2 (09:28→09:33)
[2020-04-08] MEDS: fentaNYL CITRATE 100 MCG/2 ML VL ONE ×2 (09:28→09:33)
[2020-04-08 10:30] VITALS: BP 113/53
== END 2020-04-08 10:46 | disposition home or self-care (01) ==
LOC: GI 08:50
PROVIDERS: ATTEND Internal Medicine Gastroenterology
DX: K62.5 Hemorrhage of anus and rectum (principal); D12.3 Benign neoplasm of transverse colon; K62.7 Radiation proctitis; K57.30 Diverticulosis of large intestine without perforation or abscess without bleeding; K64.8 Other hemorrhoids; K63.89 Other specified diseases of intestine; R93.3 Abnormal findings on diagnostic imaging of other parts of digestive tract; D64.9 Anemia, unspecified; M19.90 Unspecified osteoarthritis, unspecified site; F32.9 Major depressive disorder, single episode, unspecified; F41.9 Anxiety disorder, unspecified; Z20.822 Contact with and (suspected) exposure to COVID-19; Z98.890 Other specified postprocedural states; Z85.048 Personal history of other malignant neoplasm of rectum, rectosigmoid junction, and anus; Z79.899 Other long term (current) drug therapy; Z98.51 Tubal ligation status; Z90.10 Acquired absence of unspecified breast and nipple; Z90.89 Acquired absence of other organs
CPT/HCPCS: 36415; 45380; 45385; 85025; 85610; 85730; 88305; 88342; J1200; J2250; J3010; J7030; U0003; 99152

== ENCOUNTER → 2020-05-20 | Outpatient (CLI) | payer BC ==
[2020-05-20 07:40] LABS: Basophils # (auto) 0 10 ^3/uL (0-0.2); Basophils % (auto) 0.6 % (0.0-2.0); Eosinophils # (auto) 0.3 10 ^3/uL (0-0.8); Eosinophils % (auto) 5.6 % (0.0-7.0); Hematocrit 37.1 % (36.0-46.0); Hemoglobin 12.6 g/dL (12.2-16.2); Lymphocytes # (auto) 0.7 10 ^3/uL (0.4-5.4); Lymphocytes % (auto) 15.4 % (10.0-50.0); Mean Corpuscular Hemoglobin 33.2 pg (28.0-32.0); Mean Corpuscular Volume 97.6 fL (80.0-100.0); Monocytes # (auto) 0.4 10 ^3/uL (0-1.3); Monocytes % (auto) 8.6 % (0.0-12.0); Neutrophils # (auto) 3.3 10 ^3/uL (1.6-8.6); Neutrophils % (auto) 69.8 % (37.0-80.0); Platelet Count (auto) 190 10^3/uL (140-450); Red Cell Distribution Width 13.5 % (11.8-14.3); White Blood Cell 4.7 10^3/uL (4.4-10.8)
[2020-05-20 08:06] LABS: Albumin 4.1 g/dL (3.4-5.0); Calcium 9.3 mg/dL (8.5-10.1); Potassium 4.1 mmol/L (3.5-5.1)
[2020-05-20 08:12] LABS: Bilirubin, Total 0.5 mg/dL (0.2-1.0)
== END | disposition home or self-care (01) ==
LOC: LAB 07:17
PROVIDERS: ATTEND Internal Medicine
DX: C21.1 Malignant neoplasm of anal canal (principal)
CPT/HCPCS: 36415; 80053; 83615; 85025